=== PATIENT | male | born 1995 | race Native Hawaiian/Other Pacific Islander ===

== ENCOUNTER 2017-06-14 23:51 | Emergency (ER) | payer OTHER ==
[2017-06-15 00:04] VITALS: BP 130/80; PULSE 55; RESP 16; TEMP 97.6; O2SAT 99
--- NOTE | 2017-06-15 00:52 | ED PDOC ---
HPI: Eye Injury/Pain Time Seen by Provider: 06/15/17 00:30 Chief Complaint (Nursing): Eye Problem Chief Complaint (Provider): right eye irritation History Per: Patient History/Exam Limitations: no limitations Onset/Duration Of Symptoms: Mins (30) Current Symptoms Are (Timing): Still Present Additional History Per: Patient Additional Complaint(s): 22 y/o male presents with right eye irritation x 30 mins. Patient states he accidentally walked in to a tree branch. Patient notes discomfort to right eye since then. Denies headache, vision changes, discharge from eye. Patient does not wear contacts, wears glasses but does not have them with him. Past Medical History Reviewed: Historical Data, Nursing Documentation, Vital Signs Vital Signs: Last Vital Signs Temp 97.6 F 06/15/17 00:02 Pulse 55 L 06/15/17 00:02 Resp 16 06/15/17 00:02 BP 130/80 06/15/17 00:02 Pulse Ox 99 06/15/17 00:02 - Medical History PMH: No Chronic Diseases - Surgical History Surgical History: No Surg Hx - Family History Family History: States: No Known Family Hx - Living Arrangements Living Arrangements: With Family - Home Medications Home Medications: Ambulatory Orders Medication Instructions Recorded Ofloxacin Ophth 0.3% [Ocuflox 2 drop OD QID 7 Days bottle 06/15/17 Ophth 0.3%] - Allergies Allergies/Adverse Reactions: Allergies Allergy/AdvReac Type Severity Reaction Status Date / Time No Known Allergies Allergy Verified 06/15/17 00:02 Review of Systems ROS Statement: Except As Marked, All Systems Reviewed And Found Negative Eyes: Positive for: Pain (right), Redness (right) Physical Exam - Reviewed Nursing Documentation Reviewed: Yes Vital Signs Reviewed: Yes - Physical Exam Appears: Positive for: Well, Non-toxic, No Acute Distress Head Exam: Positive for: ATRAUMATIC, NORMAL INSPECTION, NORMOCEPHALIC Skin: Positive for: Normal Color Eye Exam: Positive for: EOMI, PERRL, Conjunctival injection (right). Negative for: Periorbital swelling, Periorbital tenderness - ECG O2 Sat by Pulse Oximetry: 99 - Progress ED Course And Treament: Right eye anesthetized with 2 drops tetracaine; fluro stain reveals multiple small uptake spots across cornea Patch applied Patient educated on findings, discharged with rx Ocuflox Advised optho follow up Tylenol/ibuprofen PRN pain. Return precautions given Disposition - Clinical Impression Clinical Impression: Corneal abrasion Counseled Patient/Family Regarding: Studies Performed, Diagnosis, Need For Followup, Rx Given - Disposition Referrals: Paresh Camarena MD [Staff Provider] - Disposition: Routine/Home Disposition Time: 00:53 Condition: STABLE Additional Instructions: Follow up with Acute Care Nurse Practitioner in 1-2 days. Use drops as directed. Take Tylenol or Ibuprofen as directed, as needed for pain. Return to ED for worsening/concerning symptoms. Prescriptions: Ofloxacin Ophth 0.3% [Ocuflox Ophth 0.3%] 2 drop OD QID 7 Days bottle Instructions: Corneal Abrasion (ED) Forms: [facility] (Hungarian)
== END 2017-06-15 02:10 | disposition home or self-care (01) ==
LOC: H.ER 23:51
DX: S05.01XA Injury of conjunctiva and corneal abrasion without foreign body, right eye, initial encounter (principal); W22.8XXA Striking against or struck by other objects, initial encounter